=== PATIENT | male | born 1985 | race Caucasian/White ===

== ENCOUNTER 2025-05-05 14:30 | Outpatient (CLI) | payer OTHER | END 2025-05-05 14:31 | disposition home or self-care (01) | LOC: BICMRI 14:30 | PROVIDERS: ATTEND Student in an Organized Health Care Education/Training Program | DX: M23.91 Unspecified internal derangement of right knee (principal); M24.19 Other articular cartilage disorders, other specified site ==

== ENCOUNTER 2025-05-27 08:09 | Outpatient (CLI) | payer OTHER | END 2025-05-27 08:10 | disposition home or self-care (01) | LOC: LABBT 08:09 | PROVIDERS: ATTEND Student in an Organized Health Care Education/Training Program | DX: Z01.818 Encounter for other preprocedural examination (principal); M22.41 Chondromalacia patellae, right knee | CPT/HCPCS: 71046; 93005; 93010 ==